=== PATIENT | male | born 1980 | race African-American/Black ===

== ENCOUNTER → 2016-12-26 | Outpatient (REF) ==
[~2016-12-26] MED LIST: FEXMID7.5 MG PO; INDERAL40 MG PO; PRIL40 PO; ROBAXIN 75750 MG/TAB PO; ULTRAM 50MG TAB50 MG PO; VALIUM 10MG10 MG/TAB PO; WELLBUTRIN XL300 M1 PO; ZOLOFT 25MG25 MG PO
== END ==
LOC: WSOH 13:17
DX: Z00.00 Encounter for general adult medical examination without abnormal findings (principal)

== ENCOUNTER 2019-06-05 06:03 | Day surgery (SDC) | payer OTHER ==
[~2019-06-05] VITALS: Ht 182.9 cm; Wt 159.7 kg
[2019-06-05 06:44] VITALS: BP 120/77; PULSE 62; TEMP 98.5
[2019-06-05] MEDS ORDERED: ABILIFY5 MG PO (06:54)
[2019-06-05] MEDS ORDERED: ASPIRIN E.C. 8181 MG PO (06:55)
[2019-06-05] MEDS ORDERED: CELEBREX 1100 MG/CAP PO (06:55)
[2019-06-05] MEDS ORDERED: KLONOPIN 1MG1 MG PO (06:56)
[2019-06-05] MEDS ORDERED: NUPERCAINAL OIN30 GM RC (06:57)
[2019-06-05] MEDS ORDERED: PROZAC 20MG20 MG PO (06:59)
[2019-06-05] MEDS ORDERED: FLONASEALLERGY NS (07:01)
[2019-06-05] MEDS ORDERED: NEURONTIN400 MG/CAP PO (07:01)
[2019-06-05] MEDS ORDERED: GLUCOPHAGE500 MG/TAB PO (07:02)
[2019-06-05] MEDS ORDERED: ROBAXIN 75750 MG/TAB PO (07:04)
[2019-06-05] MEDS ORDERED: INDERAL LA 80MG80 MG PO (07:05)
[2019-06-05] MEDS ORDERED: PROTONIX 40MG T40 MG PO (07:05)
[2019-06-05] MEDS ORDERED: ZOCOR 20MG20 MG PO (07:06)
[2019-06-05] MEDS ORDERED: TYLENOL 500MG500 MG PO (07:07)
[2019-06-05] MEDS ORDERED: OMEGA-3 1000 MG1 CAP PO (07:07)
[2019-06-05] MEDS ORDERED: MULTIPLE VITAMI1 CAP PO (07:07)
[2019-06-05 07:40] VITALS: BP 133/81; PULSE 61; TEMP 98.3
--- NOTE | 2019-06-05 07:40 | NUR ---
Pt arrives to [place] [facility] via cart from endo procedure. Pt ambulates from cart to recliner with RN assist. Monitors on and alarms set. Call light within reach. Report received from CL Gilliland. Pt's brought to room. Pt requests crackers and coffee. Pt denies pain or nausea. No other complications voiced.
[2019-06-05 07:45] VITALS: BP 130/81; PULSE 60
--- NOTE | 2019-06-05 07:45 | NUR ---
Pt drowsy but answering all questions appropriately.
[2019-06-05 08:00] VITALS: BP 122/76; PULSE 67
--- NOTE | 2019-06-05 08:00 | NUR ---
Pt taking food and drink well. No complications voiced by patient.
[2019-06-05 08:15] VITALS: BP 127/78; PULSE 59
--- NOTE | 2019-06-05 08:27 | NUR ---
Discharge instructions given to patient and . All questions answered to their satisfaction. Handed to them are a thank you card, discharge instructions, diagnosis information, and a discharge med sheet.
--- NOTE | 2019-06-05 08:35 | NUR ---
Pt transferred out of hospital via wheelchair and this RN to waiting private vehicle driven by .
== END 2019-06-05 08:35 | disposition home or self-care (01) ==
LOC: SDCO 06:03
DX: K21.9 Gastro-esophageal reflux disease without esophagitis (principal); K29.30 Chronic superficial gastritis without bleeding; K92.1 Melena; K64.0 First degree hemorrhoids; I10 Essential (primary) hypertension; G47.33 Obstructive sleep apnea (adult) (pediatric); Z88.1 Allergy status to other antibiotic agents; Z79.82 Long term (current) use of aspirin; Z79.52 Long term (current) use of systemic steroids; Z79.84 Long term (current) use of oral hypoglycemic drugs
CPT/HCPCS: J2704; J7030

== ENCOUNTER 2019-07-28 19:19 | Emergency (ER) | payer OTHER ==
[~2019-07-28] VITALS: Ht 180.3 cm; Wt 154.5 kg
[~2019-07-28 19:19] MED LIST changes: +ABILIFY5 MG PO; +ASPIRIN E.C. 8181 MG PO; +CELEBREX 1100 MG/CAP PO; +FLONASEALLERGY NS; +GLUCOPHAGE500 MG/TAB PO; +INDERAL LA 80MG80 MG PO; +KLONOPIN 1MG1 MG PO; +MULTIPLE VITAMI1 CAP PO; +NEURONTIN400 MG/CAP PO; +NUPERCAINAL OIN30 GM RC; +OMEGA-3 1000 MG1 CAP PO; +PROTONIX 40MG T40 MG PO; +PROZAC 20MG20 MG PO; +TYLENOL 500MG500 MG PO; +ZOCOR 20MG20 MG PO
[2019-07-28 19:39] VITALS: BP 121/68
[2019-07-28 22:25] LABS: BASO % 0.2 % (0.0-2.0); EOS % 0.2 % (0-4.0); GRAN # 5.1 (1.4-6.5); GRAN % 83.8 % (42.2-75.2); HEMATOCRIT 41.8 % (42.0-52.0); HEMOGLOBIN 13.9 g/dl (13.5-18.0); LYMPH # 0.6 (1.2-3.4); LYMPH % 9.1 % (20.0-51.0); MEAN CELL VOLUME 86 fl (80.0-100.0); MEAN CORPUSCULAR HEMOGLOBIN 29 pg (27.0-31.0); MEAN CORPUSCULAR HGB CONC 33 g/dl (33.0-37.0); MEAN PLATELET VOLUME 9.3 fl (7.4-10.4); MONO # 0.4 (0.1-0.6); MONO % 6.5 % (1.7-9.3); PLATELET COUNT 249 K/mm3 (130-400); RED BLOOD COUNT 4.84 M/mm3 (4.20-5.60); REDCELL DISTRIBUTION WIDTH-CV 12.9 % (11.5-14.5)
[2019-07-28 22:45] LABS: ALBUMIN 4.6 gm/dL (3.5-5.0); BILIRUBIN,TOTAL 1.2 mg/dL (0.0-1.0); C-REACTIVE PROTEIN 4.8 mg/dL (0.0-0.9); CALCIUM 8.9 mg/dL (8.4-10.2); CREATININE, serum 0.96 (0.66-1.25); POTASSIUM 3.8 mmol/L (3.4-5.0); TOTAL PROTEIN 7.7 gm/dL (6.4-8.2)
[2019-07-29] MEDS ORDERED: ZOFRAN ODT4 MG PO (00:56)
[2019-07-29 01:18] VITALS: PULSE 71; TEMP 98.2
== END 2019-07-29 01:18 | disposition home or self-care (01) ==
LOC: COL.ER 19:19
PROVIDERS: Emergency Medicine
DX: R19.7 Diarrhea, unspecified (principal); R11.2 Nausea with vomiting, unspecified; E11.9 Type 2 diabetes mellitus without complications; I10 Essential (primary) hypertension; F41.9 Anxiety disorder, unspecified; F32.9 Major depressive disorder, single episode, unspecified; Z79.82 Long term (current) use of aspirin; Z79.84 Long term (current) use of oral hypoglycemic drugs
CPT/HCPCS: J1885; J2405; J7030

== ENCOUNTER 2020-11-04 12:15 | Day surgery (SDC) | payer OTHER ==
[~2020-11-04] VITALS: Ht 181.6 cm; Wt 148.5 kg
[~2020-11-04 12:15] MED LIST changes: +ZOFRAN ODT4 MG PO
[2020-11-04 13:17] VITALS: BP 138/92; PULSE 60; TEMP 98.3
--- NOTE | 2020-11-04 13:26 | NUR ---
TO RM 8 AT 1234- CALL LIGHT IN REACH AT BEDSIDE.
[2020-11-04] MEDS ORDERED: ASPIRIN 81M81 MG/TA2 PO (13:58)
[2020-11-04] MEDS ORDERED: HIBICLENS4% TP (14:01)
[2020-11-04] MEDS ORDERED: JARDIANCE25 PO (14:02)
[2020-11-04] MEDS ORDERED: PEPCID 20MG TAB20 MG PO (14:03)
[2020-11-04] MEDS ORDERED: NEURONTIN300 MG/CAP PO (14:04)
[2020-11-04] MEDS ORDERED: LAMICTAL150 MG PO (14:07)
[2020-11-04] MEDS ORDERED: GLUCOPHAGE1000 MG PO (14:09)
[2020-11-04] MEDS ORDERED: ZOCOR 20MG20 MG PO (14:13)
[2020-11-04] MEDS ORDERED: EFFEXOR-XR150 MG PO (14:14)
[2020-11-04] MEDS ORDERED: EFFEXOR XR75 MG/CAP PO (14:16)
[2020-11-04] MEDS ORDERED: GOOD NEIGH3.4 GM/Dos PO (14:19)
[2020-11-04] MEDS ORDERED: ABILIFY20 MG PO (14:20)
[2020-11-04] MEDS ORDERED: IMODIUM A-D2 MG PO (14:21)
[2020-11-04] MEDS ORDERED: ONE-A-DAY ESSE1 EACH PO (14:24)
[2020-11-04 15:22] VITALS: BP 117/49; PULSE 76; TEMP 97.5
--- NOTE | 2020-11-04 15:22 | NUR ---
The patient arrived back to [facility] from the operating room at this time. The patient appears drowsy but arouses easily to his name. Post operative vital signs were started at this time. The patient's incisions to his abdomen are covered with surgical glue and without redness or edema. The patient agrees to try some apple juice at this time. Call light is within reach. Will continue to monitor the patient.
[2020-11-04] MEDS ORDERED: MOTRIN 600600 MG/TAB PO (15:34)
[2020-11-04] MEDS ORDERED: NORCO 325 MG-51 TAB PO (15:35)
[2020-11-04 15:37] VITALS: BP 136/77; PULSE 63
--- NOTE | 2020-11-04 15:37 | NUR ---
The patient has drank some juice and appeared to tolerate it well. The patient requests to use the bathroom and ambulated there with the stand by assistance of one nurse and appeared to tolerate the activity well. The patient voided without difficulty.
[2020-11-04 15:52] VITALS: BP 117/74; PULSE 83
--- NOTE | 2020-11-04 15:52 | NUR ---
The patient was given some white toast and more apple juice and appeared to tolerate both well. Vital signs appear stable. Call light is within reach. Will continue to monitor the patient.
[2020-11-04 16:10] VITALS: BP 124/72; PULSE 84
--- NOTE | 2020-11-04 16:10 | NUR ---
The patient reports increased pain in his abdomen and was given a PRN dose of [place] one tab at this time. is at his bedside at this time. Call light is within reach. Vital signs appear stable. Will continue to monitor the patient.
--- NOTE | 2020-11-04 16:20 | NUR ---
Discharge instructions were reviewed with the patient and his at this time. They both verbalized understanding and have no questions or concerns for the nurse at this time. The patient's IV to his left wrist was removed and a pressure dressing was applied to the site. The nurse instructed the patient to get dressed and notify the staff when he is ready to be escorted out.
--- NOTE | 2020-11-04 16:35 | NUR ---
The patient was escorted out via wheelchair to a private vehicle by CL Gilliland. The patient's belongings and discharge paperwork were sent with him. The patient's is present to drive him home.
== END 2020-11-04 16:35 | disposition home or self-care (01) ==
LOC: SDCO 12:15
DX: K42.9 Umbilical hernia without obstruction or gangrene (principal); K21.9 Gastro-esophageal reflux disease without esophagitis; K58.9 Irritable bowel syndrome, unspecified; F41.9 Anxiety disorder, unspecified; E11.9 Type 2 diabetes mellitus without complications; I10 Essential (primary) hypertension; K76.0 Fatty (change of) liver, not elsewhere classified; E78.5 Hyperlipidemia, unspecified; E66.01 Morbid (severe) obesity due to excess calories; G47.33 Obstructive sleep apnea (adult) (pediatric); F43.10 Post-traumatic stress disorder, unspecified; Z79.84 Long term (current) use of oral hypoglycemic drugs; Z79.899 Other long term (current) drug therapy; Z79.82 Long term (current) use of aspirin; Z87.891 Personal history of nicotine dependence; Z99.89 Dependence on other enabling machines and devices; Z68.41 Body mass index [BMI] 40.0-44.9, adult; Z83.3 Family history of diabetes mellitus
CPT/HCPCS: C1781; J0690; J2405; J2704; J7120

== ENCOUNTER → 2021-05-30 | Outpatient (CLI) | payer OTHER ==
[~2021-05-30] MED LIST changes: +ABILIFY20 MG PO; +ASPIRIN 81M81 MG/TA2 PO; +EFFEXOR XR75 MG/CAP PO; +EFFEXOR-XR150 MG PO; +GLUCOPHAGE1000 MG PO; +GOOD NEIGH3.4 GM/Dos PO; +HIBICLENS4% TP; +IMODIUM A-D2 MG PO; +JARDIANCE25 PO; +LAMICTAL150 MG PO; +MOTRIN 600600 MG/TAB PO; +NEURONTIN300 MG/CAP PO; +NORCO 325 MG-51 TAB PO; +ONE-A-DAY ESSE1 EACH PO; +PEPCID 20MG TAB20 MG PO
== END ==
LOC: COL.RAD 05-26 12:00
DX: N43.3 Hydrocele, unspecified (principal)

== ENCOUNTER 2021-06-12 19:46 | Emergency (ER) | payer OTHER ==
[~2021-06-12] VITALS: Ht 180.3 cm; Wt 147.7 kg
[2021-06-12 20:21] VITALS: TEMP 100.3
[2021-06-12 21:06] LABS: COLLECTION METHOD CLEAN CATCH
[2021-06-12 21:14] LABS: MUCOUS Present (NOT PRESENT); PH 5 (5-8); SQUAMOUS EPITHELIAL None Seen /hpf (0-10); URINE APPEARANCE Clear (CLEAR/HAZY); URINE BACTERIA None Seen /hpf (NONE SEEN); URINE BILIRUBIN Negative (NEGATIVE); URINE BLOOD Negative (NEGATIVE); URINE COLOR Yellow (YELLOW); URINE GLUCOSE 3+ (NEGATIVE); URINE KETONE 2+ (NEGATIVE); URINE LEUKOCYTE ESTERASE Negative (NEGATIVE); URINE NITRATE Negative (NEGATIVE); URINE PROTEIN(semi-quant) Negative (NEGATIVE); URINE RBC None Seen /hpf (0-2); URINE UROBILINOGEN Negative (NEGATIVE)
[2021-06-12 21:34] LABS: BASO % 0.5 % (0.0-2.0); EOS % 0.2 % (0.0-4.0); GRAN % 85.9 % (42.2-75.2); HEMATOCRIT 43.1 % (42.0-52.0); HEMOGLOBIN 14.5 g/dl (13.5-18.0); LYMPH # 0.4 K/mm3 (1.2-3.4); LYMPH % 7.4 % (20.0-51.0); MEAN CELL VOLUME 86 fl (80.0-100.0); MEAN CORPUSCULAR HEMOGLOBIN 29 pg (27-31); MEAN CORPUSCULAR HGB CONC 34 g/dl (33.0-37.0); MEAN PLATELET VOLUME 9.3 fl (7.4-10.4); MONO # 0.3 K/mm3 (0.1-0.6); MONO % 5.8 % (1.7-9.3); PLATELET COUNT 263 K/mm3 (130-400); RED BLOOD COUNT 5.03 M/mm3 (4.20-5.60)
[2021-06-12 21:48] LABS: ALBUMIN 4.1 gm/dL (3.5-5.0); BILIRUBIN,TOTAL 1.4 mg/dL (0.2-1.2); C-REACTIVE PROTEIN 4.21 mg/dL (0.00-0.50); CREATININE, serum 1.13 mg/dL (0.72-1.25); POTASSIUM 3.9 mmol/L (3.5-4.5); TOTAL PROTEIN 7.4 gm/dL (6.2-8.1)
[2021-06-12] MEDS ORDERED: ZOFRAN ODT4 MG PO (22:27)
[2021-06-13 00:13] VITALS: BP 107/61; PULSE 87
== END 2021-06-13 00:12 | disposition home or self-care (01) ==
LOC: COL.ER 19:46
PROVIDERS: Family Medicine
DX: B34.9 Viral infection, unspecified (principal); E86.0 Dehydration; I10 Essential (primary) hypertension; Z20.822 Contact with and (suspected) exposure to COVID-19; Z79.899 Other long term (current) drug therapy
CPT/HCPCS: J2405; J3010; J7030; J7120

== ENCOUNTER → 2022-04-18 | Outpatient (CLI) | payer OTHER | LOC: MHCPAIN 12:10 | DX: M17.0 Bilateral primary osteoarthritis of knee (principal); M79.2 Neuralgia and neuritis, unspecified; M25.561 Pain in right knee; M25.562 Pain in left knee | CPT/HCPCS: G0463 ==

== ENCOUNTER 2022-08-27 06:21 | Day surgery (SDC) | payer OTHER ==
[~2022-08-27] VITALS: Ht 180.3 cm; Wt 147.8 kg
[2022-08-27 07:45] VITALS: BP 132/71; PULSE 70; TEMP 96.8
[2022-08-27] MEDS ORDERED: MOTRIN 600600 MG/TAB PO (09:09)
[2022-08-27] MEDS ORDERED: NORCO 325 MG-51 TAB PO (09:09)
[2022-08-27 09:45] VITALS: BP 145/80; PULSE 80; TEMP 97.9
--- NOTE | 2022-08-27 09:45 | NUR ---
0945 PATIENT RETURNS TO ROOM 7 VIA CART. PATIENT IS DROWSY, BUT ALERT. PATIENT IS IN ROOM. RESPIRATIONS EVEN AND UNLABORED. VITAL SIGNS OBTAINED. PATIENT HAS A 4X4 TO RECTUM. NO DRAINAGE NOTED. PATINET DOES NOT C/O ANY PAIN OR N/V. PATIENT REQUESTED APPLE JUICE. NO DIFFICULTIES SWALLOWING. 1010 THIS NURSE REVIEWED DISCHARGE INSTRUCTIONS WITH PATIENT AND PATIENT . BOTH VERBALIZED UNDERSTANDING. 1015 DISCONTINUED IV FROM LEFT HAND WITH NO DIFFICULTIES. 1020 PATIENT DRESSES SELF. 1030 PATINET DISCHARGES FROM UNIT VIA WHEELCHAIR IN STABLE CONDITION.
[2022-08-27 10:00] VITALS: BP 135/75; PULSE 80
[2022-08-27 10:04] VITALS: TEMP 98.2
[2022-08-27 10:15] VITALS: BP 151/96; PULSE 81
== END 2022-08-27 10:30 | disposition home or self-care (01) ==
LOC: SDCO 06:21
DX: K64.1 Second degree hemorrhoids (principal); K62.5 Hemorrhage of anus and rectum; E11.9 Type 2 diabetes mellitus without complications; Z87.891 Personal history of nicotine dependence; Z79.84 Long term (current) use of oral hypoglycemic drugs
CPT/HCPCS: J0690; J2405; J2704; J3010; J7120

== ENCOUNTER 2022-09-10 07:26 | Day surgery (SDC) | payer OTHER ==
[~2022-09-10] VITALS: Ht 180.3 cm; Wt 150.1 kg
[2022-09-10 09:25] VITALS: BP 106/72; PULSE 79; TEMP 97.3
[2022-09-10] MEDS ORDERED: VITAMIN D362.5 MC1 (09:38)
[2022-09-10] MEDS ORDERED: FLEXERIL 1010 MG/TAB PO (09:39)
[2022-09-10 09:40] VITALS: BP 112/74; PULSE 73
[2022-09-10] MEDS ORDERED: RELAFEN750 MG PO (09:41)
[2022-09-10] MEDS ORDERED: OZEMPIC1 MG/0.71 SQ (09:42)
[2022-09-10] MEDS ORDERED: DESYREL 50MG50 MG PO (09:42)
[2022-09-10] MEDS ORDERED: ANTI-DIARRHEAL2 MG PO (09:43)
[2022-09-10 09:55] VITALS: BP 120/83; PULSE 78
[2022-09-10 10:36] VITALS: BP 128/84; PULSE 72; TEMP 97
--- NOTE | 2022-09-10 10:48 | NUR ---
0925: PATIENT TO [facility] PER CART FROM ENDO SUITE. REPORT RECEIVED FROM ENDO RN. VS OBTAINED. BREATHING EVEN AND UNLABORED. DR. MATSON IN TO SPEAK WITH PATIENT AND PATIENT'S AT THIS TIME. PATIENT REQUESTING JUICE AND CRACKERS. NO COMPLAINTS AT THIS TIME. RESTING IN RECLINER. CALL LIGHT IN REACH. 0940: VS REMAIN STABLE. PATIENT TOLERATING JUICE AN CRACKERS. NO COMPLAINTS AT THIS TIME. RESTING IN RECLINER. AT BEDSIDE. CALL LIGHT IN REACH. 0955: VS REMAIN STABLE. PATIENT HAS NO COMPLAINTS AND REQUESTING DISCHARGE INSTRUCTIONS. 0957: DISCHARGE EDUCATION COMPLETED. PATIENTS STATED UNDERSTANDING OF INSTRUCTIONS. DISCHARGE PAPERWORK GIVEN TO PATIENT. IV DC'D AT THIS TIME. PATIENT DENIES ANY ASSISTANCE WITH DRESSING/ 1010: PATIENT OFF UNIT VIA WHEELCHAIR. PATIENT DISCHARGED TO HOME WITH PER PERSONAL VEHICLE.
== END 2022-09-10 10:10 | disposition home or self-care (01) ==
LOC: SDCO 07:26
DX: K64.8 Other hemorrhoids (principal); G47.33 Obstructive sleep apnea (adult) (pediatric); Z87.891 Personal history of nicotine dependence
CPT/HCPCS: J2704